=== PATIENT | male | born 2000 | race Caucasian/White ===

== ENCOUNTER 2021-11-21 13:27 | Emergency (ER) | payer OTHER, SELFPAY ==
[2021-11-21 13:34] VITALS: BP 136/76; PULSE 77; RESP 16; TEMP 37.1; O2SAT 100
--- NOTE | 2021-11-21 13:39 | ED.ABDPAIN ---
HPI - Abdominal Pain General Chief Complaint: Abdominal Pain Stated Complaint: Vomiting/Diarrhea Time Seen by Provider: 11/21/21 13:41 Source: patient and RN notes reviewed Mode of arrival: ambulatory Limitations: no limitations History of Present Illness HPI narrative: 21 y/o male presented for c/o nausea, vomiting, and diarrhea for 4 days. Denies hematochezia, melena, abdominal pain, urinary complaints, fever, chills. He is able to tolerate po intake today, stating he has had one episode of vomiting and diarrhea this morning and yesterday. Has not taken anything for symptoms. Denies sick contacts. Related Data Allergies Allergy/AdvReac Type Severity Reaction Status Date / Time codeine AdvReac Unknown Other Verified 11/21/21 13:43 Review of Systems Review of Systems: All systems reviewed & are unremarkable except as noted in HPI and below PMFSH Comments At time of signature, I have reviewed and agree with nursing past medical, surgical, social and family history unless otherwise noted. Please see nursing chart for further information. There is no relevant family history pertinent to the presenting complaint Exam Narrative: GENERAL: Well-appearing EYES: EOMI. Conjunctivae normal. ENT: Mucous membranes pink and moist. CHEST: No respiratory distress. Clear to auscultation. HEART: Regular rate and rhythm. ABDOMEN: abd soft, flat, nontender, normal active bowel sounds. SKIN: Warm, dry, no rash. Capillary refill normal. Normal skin turgor. Course Course Emergency Course: Patient is aware of diagnosis, understands and agrees to treatment plan. Anticipatory guidance given. Patient agrees to follow-up as directed and is aware of reasons to seek care at the emergency department. Portions of this record may have been created with voice recognition software Level of Care: Express Care Visit Vital Signs Vital signs: Vital Signs Temperature 98.7 F 11/21/21 13:34 Pulse Rate 77 11/21/21 13:34 Respiratory Rate 16 11/21/21 13:34 Blood Pressure 136/76 11/21/21 13:34 Pulse Oximetry 100 11/21/21 13:34 Oxygen Delivery Room Air 11/21/21 13:34 Temperature 98.7 F 11/21/21 13:34 Pulse Rate 77 11/21/21 13:34 Respiratory Rate 16 11/21/21 13:34 Blood Pressure 136/76 11/21/21 13:34 Pulse Oximetry 100 11/21/21 13:34 Oxygen Delivery Room Air 11/21/21 13:34 MDM - Abdominal Pain MDM Narrative Medical decision making narrative: Advised supportive measures for n/v/d, and signs/symptoms to go to the ER. Pt is appropriate for outpt treatment and f/u. Differential Diagnosis Differential diagnosis: Likely abdominal pain, constipation and gastroenteritis Discharge Plan Discharge Clinical Impression: Nausea vomiting and diarrhea Patient Disposition: Home, Self-Care Condition: Stable Instructions: Gastroenteritis (ED) Additional Instructions: Stay hydrated. Take small sips of fluid containing electrolytes frequently. Clear liquids (broth, jello, tea, sprite, pedialyte) Trigg foods (bananas, rice, applesauce, toast, crackers); avoid fatty, greasy, fried or spicy foods You should go to the hospital if you experience persistent nausea and vomiting that does not resolve and does not allow you to tolerate any food or fluids, fevers, increasing abdominal pain, persistent diarrhea, dizziness, fainting, or for any other concerns. Follow up with your primary care provider as needed in 1 week Go to the ER for worsening symptoms or concerns Prescriptions: New famotidine [Pepcid] 40 mg tablet 40 mg PO DAILY Qty: 10 0RF ondansetron 4 mg tablet,disintegrating 4 mg PO Q8H PRN (Reason: nausea and vomiting) Qty: 20 0RF Follow-up/Referrals: PHYSICIAN,SOIL SPECIALIST [Primary Care Provider] - Stand Alone Forms: Work/School Release IP Time of Disposition: 13:52
== END 2021-11-21 13:55 | disposition home or self-care (01) ==
PROVIDERS: Emergency Provider Nurse Practitioner Family
DX: R11.2 Nausea with vomiting, unspecified (principal); R19.7 Diarrhea, unspecified
CPT/HCPCS: 99203; G0463

== ENCOUNTER 2022-04-30 12:42 | Emergency (ER) | payer OTHER, SELFPAY ==
[2022-04-30 13:01] VITALS: BP 130/72; PULSE 71; RESP 16; TEMP 37.1; O2SAT 100
--- NOTE | 2022-04-30 13:33 | ED.GENADULT ---
HPI - General Adult General Chief complaint: Extremity Injury, Lower Stated complaint: Left Foot Injury Source: patient Mode of arrival: ambulatory Limitations: no limitations History of Present Illness HPI narrative: Patient presents for evaluation of left foot pain for the last 2 days. He indicates he bumped the drosal aspect of his left foot against a coffee table. He was not wearing shoes at the time of the event. He missed work yesterday and today and was told he needed a letter allowing him to return to work. He denies significant pain. He refers to his pain as a bruise . No loss of range of motion. No paresthesias. He does not feel he needs any imaging studies performed. Related Data Allergies Allergy/AdvReac Type Severity Reaction Status Date / Time codeine AdvReac Unknown Other Verified 11/21/21 13:43 Review of Systems Review of Systems: CONSTITUTIONAL: Denies fever, chills, or sweats. EYES: Denies visual changes, redness, or discharge. ENT: Denies rhinorrhea, congestion, sore throat, or otalgia. CARDIOVASCULAR: Denies chest pain, palpitations, or edema. RESPIRATORY: Denies cough or dyspnea. GASTROINTESTINAL: Denies abdominal pain, nausea, vomiting, or diarrhea. GENITOURINARY: Denies dysuria or hematuria. SKIN: Denies rash or itching. MUSCULOSKELETAL: Reports left foot pain. NEUROLOGIC: Denies headache, numbness, dizziness, or weakness. PSYCHIATRIC: Denies anxiety or depression. [facility] Past Medical History Medical History No pertinent past medical history Surgical History Surgical History No pertinent past surgical history Family History Family History Mother Family history non-contributory Social History Social History Smoking packs per day: 1 Smoking cigarettes per day: 20.0 Smoking status: Current every day smoker Alcohol intake: current Alcohol use details: social Substance use: current Substance use type: marijuana Gender identity (if verbalized by the patient): Male Spiritual care concerns: No Exam Narrative: GENERAL: Well-appearing, well-nourished, and in no acute distress. HEAD: Normocephalic, atraumatic. EYES: PERRLA and EOMI. ENT: Nares clear, no rhinorrhea or epistaxis. Mucous membranes moist. Oropharynx without tonsillar hypertrophy exudate or other lesions. Bilateral TMs pearly main nonbulging NECK: Supple. No adenopathy or masses. No carotid bruits or JVD CHEST: Clear to auscultation. No respiratory distress. No wheezes rales or rhonchi HEART: Regular rate and rhythm. No murmur heard. Normal peripheral pulses. ABDOMEN: Soft, nontender, nondistended, normal active bowel sounds. EXTREMITIES: There is mild swelling noted to the dorsal aspect of the left foot with associated tenderness. Able to dorsi and plantflex the left foot. He is able to wiggle all digits of the left foot. Sensation intact SKIN: Warm, dry, no rash. NEURO: No focal deficits. Alert and oriented x3. PSYCH: Normal mood and affect. Course Course Emergency Course: This is a 22 old male who presents for evaluation of left foot pain. I offered x ray which he declined. He has full ROM and denies significant pain so this seems reasonable. He states he simply needs a note allowing him to return to work. Advised on RICE therapy. May take [id number] agents for symptom management. He may return to work and a letter was provided. Level of Care: Express Care Visit Vital Signs Vital signs: Vital Signs Temperature 37.1 C 04/30/22 13:01 Pulse Rate 71 04/30/22 13:01 Respiratory Rate 16 04/30/22 13:01 Blood Pressure 130/72 04/30/22 13:01 Pulse Oximetry 100 04/30/22 13:01 Oxygen Delivery Room Air 04/30/22 13:01 Temperature 37.1 C
== END 2022-04-30 13:35 | disposition home or self-care (01) ==
PROVIDERS: Emergency Provider Nurse Practitioner; PCP Emergency Medicine
DX: S90.32XA Contusion of left foot, initial encounter (principal); W22.03XA Walked into furniture, initial encounter; F17.210 Nicotine dependence, cigarettes, uncomplicated; F12.90 Cannabis use, unspecified, uncomplicated
CPT/HCPCS: 99212; G0463